=== PATIENT | female | born 1990 | race Caucasian/White ===

== ENCOUNTER 2018-02-08 13:27 | Emergency (ER) | payer OTHER, SELFPAY ==
[2018-02-08 13:38] VITALS: BP 106/71; PULSE 68; RESP 14; TEMP 36.4; O2SAT 98
--- NOTE | 2018-02-08 14:24 | ED.HA ---
HPI - Headache <ABDIAZIZ Nunez - Last Filed: 02/08/18 23:06> General Chief Complaint: Headache Stated Complaint: MIGRAINE W/VOMITING. Time Seen by Provider: 02/08/18 14:24 Source: patient Mode of arrival: ambulatory Limitations: no limitations History of Present Illness HPI Narrative: 27-year-old female with history of migraine headaches here for complaint of having a migraine like hide ache that started last night. She reports that she has had some photophobia along with nausea vomiting. She denies any aura. She states that this is normal migraine headache presentation for her. She denies any head trauma. No fevers no chills. She denies any other concerns or complaints at this time. She denies any relievers or stressors of her pain MD Complaint: headache Related Data Home Medications Medication Instructions Recorded Confirmed No Known Home Medications 02/08/18 02/08/18 Allergies Allergy/AdvReac Type Severity Reaction Status Date / Time amoxicillin Allergy Intermediate Rash Verified 02/08/18 13:41 Sulfa (Sulfonamide Allergy Intermediate Rash Verified 02/08/18 13:41 Antibiotics) Review of Systems <ABDIAZIZ Nunez - Last Filed: 02/08/18 23:06> Constitutional Denies chills, Denies fever(s), Reports headache(s), Denies lethargy and Denies weakness Eyes Denies change in vision, Denies eye discharge, Denies irritation and Denies loss of vision ENT Ears, Nose, Mouth, and Throat: Denies change in voice, Reports headache(s), Denies neck pain and Denies sore throat Cardiovascular Denies chest pain, Denies irregular heart rhythm, Denies lightheadedness, Denies palpitations, Denies dyspnea, Denies dyspnea on exertion and Denies orthopnea Respiratory Denies cough, Denies dyspnea, Denies dyspnea on exertion and Denies wheezing Gastrointestinal Gastrointestinal: Reports vomiting Genitourinary Denies hematuria, Denies flank pain, Denies urinary incontinence and Denies urinary urgency Musculoskeletal Denies neck pain Integumentary/Breasts Denies pruritus, Denies erythema, Denies rash and Denies wounds Neurologic Denies confusion, Reports headache(s), Denies loss of vision and Denies weakness Psychiatric Denies anxiety, Denies confusion, Denies depression, Denies homicidal ideation and Denies suicidal ideation Endocrine Denies palpitations Hematologic/Lymphatic Denies easy bruising Allergic/Immunologic Denies wheezing Exam <ABDIAZIZ Nunez - Last Filed: 02/08/18 23:06> Initial Vital Signs Initial Vital Signs: Vital Signs Temperature 97.6 F 02/08/18 13:38 Pulse Rate 68 02/08/18 13:38 Respiratory Rate 14 02/08/18 13:38 Blood Pressure 106/71 02/08/18 13:38 Pulse Oximetry 98 02/08/18 13:38 Const General: cooperative and well developed Nutritional Appearance: well nourished Orientation: alert, awake, oriented x3 and not confused HENID Mouth: oral mucosae normal, oropharynx normal and moist mucous membranes Eyes General: appearance normal, both eyes and all related structures Eyelids: eyelids normal Conjunctivae: conjunctivae normal Sclera: sclerae normal Pupils: PERRL EOM: EOM intact bilaterally Resp Effort & Inspection: normal respiratory effort, able to speak in complete sentences, no respiratory distress and no use of accessory muscles Auscultation: clear to auscultation bilaterally, no rales, no rhonchi and no wheezes Cardio Rate: regular rate Rhythm: regular rhythm Heart Sounds: no click, no gallops, no murmurs and no rubs Pulses: normal peripheral pulses GI Inspection: non-distended Palpation: soft, no hepatosplenomegaly, No guarding, No pulsatile mass and No tender Auscultation: normal bowel sounds Skin General: no rashes or lesions noted, No jaundice and No petechiae Neuro General: alert, oriented x3, gait normal and no focal motor deficits Speech: speech normal <Duncan Monroe MD - Last Filed: 02/10/18 08:52> Initial Vital Signs Initial Vital Signs: Vital Signs Temperature 97.6 F 02/08/18 13:38 Pulse Rate 68 02/08/18 13:38 Respiratory Rate 14 02/08/18 13:38 Blood Pressure 106/71 02/08/18 13:38 Pulse Oximetry 98 02/08/18 13:38 Course <ABDIAZIZ Nunez - Last Filed: 02/08/18 23:06> Orders Ordered: Discontinued Medications Diphenhydramine HCl (Benadryl) 25 mg IV NOW ONE Stop: 02/08/18 14:30 Last Admin: 02/08/18 14:40 Dose: 25 mg Sodium Chloride (Normal Saline 0.9%) 1,000 mls @ 1,000 mls/hr IV BOLUS ONE Stop: 02/08/18 15:28 Last Infusion: 02/08/18 15:32 Dose: 0 mls/hr Admin: 02/08/18 14:40 Dose: 1,000 mls/hr Ketorolac Tromethamine (Toradol) 30 mg IV NOW ONE Stop: 02/08/18 14:30 Last Admin: 02/08/18 14:40 Dose: 30 mg Prochlorperazine (Compazine) 10 mg IV NOW ONE Stop: 02/08/18 14:30 Last Admin: 02/08/18 14:41 Dose: 10 mg Vital Signs - 8 hr 02/08/18 16:17 Pulse Rate 74 Respiratory Rate 14 Blood Pressure [Left Arm] 101/62 Pulse Oximetry 100 <Duncan Monroe MD - Last Filed: 02/10/18 08:52> Orders Ordered: Discontinued Medications Diphenhydramine HCl (Benadryl) 25 mg IV NOW ONE Stop: 02/08/18 14:30 Last Admin: 02/08/18 14:40 Dose: 25 mg Sodium Chloride (Normal Saline 0.9%) 1,000 mls @ 1,000 mls/hr IV BOLUS ONE Stop: 02/08/18 15:28 Last Infusion: 02/08/18 15:32 Dose: 0 mls/hr Admin: 02/08/18 14:40 Dose: 1,000 mls/hr Ketorolac Tromethamine (Toradol) 30 mg IV NOW ONE Stop: 02/08/18 14:30 Last Admin: 02/08/18 14:40 Dose: 30 mg Prochlorperazine (Compazine) 10 mg IV NOW ONE Stop: 02/08/18 14:30 Last Admin: 02/08/18 14:41 Dose: 10 mg Vital Signs - 8 hr 02/08/18 16:17 Pulse Rate 74 Respiratory Rate 14 Blood Pressure [Left Arm] 101/62 Pulse Oximetry 100 MDM - Headache <ABDIAZIZ Nunez - Last Filed: 02/08/18 23:06> MDM Narrative Medical decision making narrative: Signs and symptoms presents as migraine headache. She was given Compazine and Benadryl and Toradol along with fluids in the emergency room which reduced her headache. She states she is feeling much better. Urinalysis was negative for UTI and also urine . Home to quiet environment for plenty of fluids and rest. Follow up with primary care provider in the next few days for re-evaluation. For any worsening symptoms return to the emergency room. Discharge Plan Departure Patient Disposition: Home, Self-Care Clinical Impression: Migraine Discharge Date/Time: 02/08/18 16:18 Interventions: ED Discharge Assessment Last Done: 02/08/18 16:17 Instructions: Migraine -- Adult Activity Restrictions/Additional Instructions: Sinus symptoms presents as a migraine headache. You were given medications and fluids in the emergency room which resolved her headache. Home to quiet environment for plenty of rest and fluids. Follow up with primary care provider in the next few days for re-evaluation. [id number] Tylenol for any discomfort. For any worsening symptoms return to the emergency room. Prescriptions: No Action No Known Home Medications RF: 0 Referrals: [facility] [employer] [facility] [Provider Group] <Duncan Monroe MD - Last Filed: 02/10/18 08:52> Sign Out Provider Sign Out Attestation: The PA/ENGINE[employer]ELOP[employer] functioned independently for the care of this pt, I was available, but not asked to participate in care. I am unable to determine appropriateness of management without personally examining the pt.
[2018-02-08] MEDS: diphenhydrAMINE 50 MG/ML VIAL 25 MG IV (14:40)
[2018-02-08] MEDS: SODIUM CHLORIDE 0.9% 1,000 ML 1000 ML IV (14:40)
[2018-02-08] MEDS: KETOROLAC 60 MG/2 ML VIAL 30 MG IV (14:40)
[2018-02-08 14:41] VITALS: BP 106/71; PULSE 63
[2018-02-08] MEDS: PROCHLORPERAZINE 10 MG/2 ML VIAL IV (14:41)
--- NOTE | 2018-02-08 15:11 | PC.NURSE ---
Pt resting comfortably in room. Stable
[2018-02-08 16:17] VITALS: BP 101/62; PULSE 74; RESP 14; O2SAT 100
--- NOTE | 2018-02-10 13:37 | PC.NURSE ---
Follow up phone call: States she feels 'a million times better'. No complaints. Encouraged to f/u as needed and indicated and return for any difficulty or concerns.
== END 2018-02-08 16:18 | disposition home or self-care (01) ==
PROVIDERS: Emergency Provider Nurse Practitioner Family
DX: G43.909 Migraine, unspecified, not intractable, without status migrainosus (principal)
CPT/HCPCS: 81003; 81025; 96361; 96374; 96375; 99283; 99284; J0780; J1200; J1885